=== PATIENT | male | born 1985 | race African-American/Black ===

== ENCOUNTER 2020-07-08 12:03 | Emergency (ER) | payer OTHER ==
[~2020-07-08] VITALS: Ht 172.7 cm; Wt 66.0 kg
[2020-07-08 12:05] VITALS: BP 126/69
== END 2020-07-08 12:42 | disposition home or self-care (01) ==
LOC: EDBD 12:03 → ER 12:03
DX: G40.909 Epilepsy, unspecified, not intractable, without status epilepticus (principal); F12.10 Cannabis abuse, uncomplicated
CPT/HCPCS: 99283

== ENCOUNTER 2020-11-07 18:57 | Inpatient (IN) | payer MEDICAID, OTHER ==
[~2020-11-07] VITALS: Ht 193 cm; Wt 64.0 kg
[2020-11-07] MEDS ORDERED: MORPHINE SULFATE 4 MG/ML CPJ (NOT FOR IM USE) IV STA (20:18)
[2020-11-07] MEDS ORDERED: ONDANSETRON HCL 4MG/2ML INJ IV STA (20:18)
[2020-11-07] MEDS ORDERED: SODIUM CHLORIDE 0.9% 1,000 ML IV ONE (20:30)
[2020-11-07 20:56] LABS: BASOPHILS % 0.8 % (0.0-2.0); EOSINOPHILS % 0.2 % (0.0-5.0); HEMATOCRIT. 38.7 % (42.0-52.0); HEMOGLOBIN. 13.3 g/dL (14.0-18.0); LYMPHOCYTES % 12.8 % (20.0-50.0); MEAN CORPUSCULAR HEMOGLOBIN 33.6 pg (28.0-32.0); MEAN CORPUSCULAR VOLUME 97.6 fL (80.0-94.0); MEAN PLATELET VOLUME 8.8 fl (7.4-10.4); MONOCYTES % 6.5 % (2.0-8.0); NEUTROPHILS % 79.7 % (40.0-76.0); PLATELET 295 x1000/uL (130-400); RED BLOOD CELL COUNT 3.96 mill/uL (4.7-6.1); RED CELL DISTRIBUTION WIDTH 17.3 % (11.6-14.6)
[2020-11-07] MEDS ORDERED: METOCLOPRAMIDE HCL 10MG/2ML VIAL IV ONE (21:00)
[2020-11-07] MEDS ORDERED: FENTANYL CITRATE/PF 50MCG/ML 2ML VIAL IV ONE (21:00)
[2020-11-07 21:02] LABS: CHLORIDE 104 mEq/L (98-107); PROTHROMBIN TIME 10.9 sec (9.6-11.0)
[2020-11-07 21:06] LABS: ETHANOL BLOOD < 10 mg/dL
[2020-11-07] MEDS ORDERED: LORAZEPAM 2MG/ML CPJ IV ONE (21:30)
[2020-11-07] MEDS ORDERED: IOHEXOL-300 100 ML BOTTLE ONE (23:35)
[2020-11-08] MEDS ORDERED: KETOROLAC 15MG/ML VIAL IV ONE (03:00)
[2020-11-08 03:24] LABS: CLARITY URINE CLEAR (CLEAR); COLOR URINE YELLOW (YELLOW); KETONES URINE 1+ (NEGATIVE); LEUKOCYTE ESTERASE URINE NEGATIVE (NEGATIVE); NITRITE URINE NEGATIVE (NEGATIVE); OCCULT BLOOD URINE NEGATIVE (NEGATIVE); PH URINE 8.5 (4.5-8.0); PROTEIN URINE NEGATIVE (NEGATIVE); SPECIFIC GRAVITY URINE 1.074 (1.005-1.030)
[2020-11-08 03:39] LABS: *BARBITURATES SCREEN URINE NEGATIVE (NEGATIVE); *BENZODIAZEPINES SCREEN URINE NEGATIVE (NEGATIVE)
[2020-11-08 03:40] LABS: *AMPHETAMINES SCREEN URINE NEGATIVE (NEGATIVE); *COCAINE SCREEN URINE NEGATIVE (NEGATIVE); CANNABINOID URINE SCREEN PRESUMTIVE POSITIVE (NEGATIVE); METHADONE URINE SCREEN NEGATIVE (NEGATIVE); OPIATES URINE SCREEN PRESUMTIVE POSITIVE (NEGATIVE); PHENCYCLIDINE URINE SCREEN NEGATIVE (NEGATIVE)
[2020-11-08] MEDS: ONDANSETRON HCL 4MG/2ML INJ IV PRN ×2 (05:40→22:19)
[2020-11-08] MEDS: KETOROLAC 30MG/ML VIAL IV PRN ×3 (05:40→18:42)
[2020-11-08] MEDS ORDERED: ACETAMINOPHEN 325MG TABLET PO PRN (12:30)
[2020-11-08] MEDS ORDERED: MORPHINE SULFATE 2 MG/ML CPJ (NOT FOR IM USE) IV NR ×2 (15:15→21:42)
[2020-11-08 18:00] VITALS: BP 109/68
[2020-11-08] MEDS: DEXT 5%/0.45% NACL 1000ML 1,000 ML IV SCH (18:41)
[2020-11-08 20:00] VITALS: BP 115/66
[2020-11-08] MEDS ORDERED: HYDROCODONE/ACETAMINOPHEN 5/325MG TABLET PO PRN (21:29)
[2020-11-09] VITALS: BP 120/75
[2020-11-09] MEDS ORDERED: DIVA250T4 MT (01:25)
[2020-11-09] MEDS: KETOROLAC 30MG/ML VIAL IV PRN ×2 (02:50→08:14)
[2020-11-09 04:00] VITALS: BP 118/72
[2020-11-09] MEDS: DEXT 5%/0.45% NACL 1000ML 1,000 ML IV SCH (07:07)
[2020-11-09] MEDS ORDERED: OMEPRAZOLE 20MG CAPSULE EXTENDED RELEASE PO SCH (07:20)
[2020-11-09 08:00] VITALS: BP 120/76
[2020-11-09 08:14] VITALS: BP 120/76
[2020-11-09 08:47] LABS: BASOPHILS % 0.3 % (0.0-2.0); EOSINOPHILS % 0.7 % (0.0-5.0); HEMATOCRIT. 30.3 % (42.0-52.0); HEMOGLOBIN. 10.6 g/dL (14.0-18.0); LYMPHOCYTES % 26.1 % (20.0-50.0); MEAN CORPUSCULAR HEMOGLOBIN 34.1 pg (28.0-32.0); MEAN CORPUSCULAR VOLUME 97.3 fL (80.0-94.0); MEAN PLATELET VOLUME 8.6 fl (7.4-10.4); MONOCYTES % 5.6 % (2.0-8.0); NEUTROPHILS % 67.3 % (40.0-76.0); PLATELET 223 x1000/uL (130-400); RED BLOOD CELL COUNT 3.12 mill/uL (4.7-6.1); RED CELL DISTRIBUTION WIDTH 17.5 % (11.6-14.6)
[2020-11-09 08:48] LABS: CHLORIDE 106 mEq/L (98-107)
[2020-11-09] MEDS ORDERED: DIVALPROEX SODIUM 250MG DR TABLET PO SCH (21:00)
== END 2020-11-09 10:05 | disposition left against medical advice (07) | DRG 249 ==
LOC: ER 18:57 → 6EST 11-08 02:47 → EDBEDREQTM 11-08 03:00 → EDBEDREQ 11-08 03:00 → EDBEDREQDT 11-08 03:00 → ENRESERV 11-08 15:43 → CANRESERV 11-08 16:03 → ENRESERV 11-08 16:03 → EDBEDREQSVC 11-08 16:04 → CANRESERV 11-08 16:19 → ENRESERV 11-08 16:19 → 6EST 11-08 17:49
PROVIDERS: ADMIT Internal Medicine; ATTEND Internal Medicine
DX: K52.9 Noninfective gastroenteritis and colitis, unspecified (principal); N13.30 Unspecified hydronephrosis; E87.6 Hypokalemia; Z53.29 Procedure and treatment not carried out because of patient's decision for other reasons; G40.909 Epilepsy, unspecified, not intractable, without status epilepticus; F12.90 Cannabis use, unspecified, uncomplicated; Z82.49 Family history of ischemic heart disease and other diseases of the circulatory system; Z90.49 Acquired absence of other specified parts of digestive tract
CPT/HCPCS: 36415; 71045; 74177; 80048; 80053; 80305; 80320; 81003; 83605; 84484; 85025; 86850; 86900; 93005; 99291; J1885; J2060; J2270; J2405; J2765; J3010; J7030; Q9967; G0480